=== PATIENT | male | born 1950 | race Caucasian/White ===

== ENCOUNTER 2016-07-25 13:12 | Emergency (ER) | payer OTHER ==
[2016-07-25 13:23] VITALS: TEMP 98.1
--- NOTE | 2016-07-25 13:42 | EDPHY ---
H & P Stated Complaint: exertional sob last 4 days HPI/ROS: CHIEF COMPLAINT: Chest heaviness HISTORY OF PRESENT ILLNESS: This patient is a 66 year old male with history of hypertension arriving by private vehicle complaining of chest heaviness onset 3-4 days ago. He reports he took 81mg PO Aspirin this morning, and acetaminophen (Panadol) last night. He describes heaviness and fullness in his chest, and an "unwillingness to breathe", and that he generally feels "unusually unwell". There is no radiation of pain, no nausea, no sweating. He states this sensation waxes and wanes, but is present most of the time. He has had an intermittent bloating feeling as well , and felt very full despite having only yogurt and fruit for breakfast. He also reports associated backache in the lumbar region bilaterally. He states he has never had a feeling similar to this before. He states he is not sure if some of his symptoms may be psychosomatic, as his mother in December , and this has been weighing on him heavily. He endorses slight cough. He denies vomiting, nausea, diarrhea, constipation, pain in calves, edema, incontinence. He states his is on his way back from [place] to care for him. REVIEW OF SYSTEMS: A ten point review of systems was performed and is negative with the exception of the items mentioned in the HPI. - Personal History Current Tetanus/Diphtheria Vaccine: Yes - Medical/Surgical History PMH: 1. Hypertension (Candesartan) 2. Kidney stones Hx Asthma: Yes Hx Chronic Respiratory Disease: No Hx Diabetes: No Hx Cardiac Disease: No Hx Renal Disease: No Hx Cirrhosis: No Hx Alcoholism: No Hx HIV/AIDS: No Hx Splenectomy or Spleen Trauma: No Other PMH: HTN, KIDNEY STONES - Social History Smoking Status: Never smoked Additional Social History: Nonsmoker. Rare alcohol use. . 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 - Physical Exam Exam: General Appearance: Alert. Vital signs reviewed. BP 133/81. Eyes: Pupils equal and round, no conjunctival injection, no discharge. Anicteric. ENT, Mouth: Mucous membranes are moist, no oropharyngeal erythema or edema. Neck: No lymphadenopathy, supple. No JVD. Respiratory: Lungs are clear to auscultation; no wheezes, rales, or rhonchi. Cardiovascular: Regular rate and rhythm; no murmur, rub, or gallop. Gastrointestinal: Abdomen is soft and nontender, no masses or organomegaly, bowel sounds normal. Skin: Warm and dry, no rashes on exposed skin, normal color. Back: Nontender to palpation over the thoracolumbar spine. No CVAT. Extremities: No lower extremity edema, no calf tenderness or swelling. Neurological: Alert and oriented. Moving all four extremities easily and equally. Psychiatric: Normal affect. Constitutional: Initial Vital Signs Temperature (C) 36.7 C 07/25/16 13:19 Heart Rate 73 07/25/16 13:19 Respiratory Rate 17 07/25/16 13:19 Blood Pressure 133/81 H 07/25/16 13:19 O2 Sat (%) 97 07/25/16 13:19 O2 Delivery Mode Room Air Allergies/Adverse Reactions: tetracycline [Tetracycline] Allergy (Verified 07/25/16 13:19) Home Medications: Medication Instructions Recorded ALPRAZolam [Xanax 0.25 MG (*)] 0.25 mg PO Q6 PRN #5 tab 07/25/16 Albuterol [Proventil Inhaler HFA 1 - 2 puffs IH Q4H PRN 07/25/16 (*)] Aspirin [Aspirin 81mg (*)] 81 mg PO DAILY 07/25/16 Candesartan Cilexetil [Atacand] 16 mg PO DAILY 07/25/16 Loratadine 10 mg PO DAILY PRN 07/25/16 Medical Decision Making - Diagnostics Imaging Results: I reviewed the two view chest xray in PACS. My interpretation: [facility]. ED Course/Re-evaluation: This patient is a 66 year old male presenting with a four day history of chest heaviness and difficulty breathing. Plan to order EKG, chest x-ray, and labs including CBC, CHEM, d-dimer, and troponin. Plan to administer 325mg PO Aspirin. EKG shows sinus rhythm, rate 76. Chest x-ray shows no acute processes, evidence of chronic bronchitis. . Reassessed patient. Discussed results of testing. Plan to admit for chest pain to monitor for acute processes. 17:00 Dr. Callaway discussed admission with the patient. Disposition was arranged between the two of them and he will instead be discharged home with a prescription for Xanax and instructions to follow up on Tuesday with a world renowned chef and restaurant owner to continue management of his symptoms. Differential Diagnosis: Chest pain including but not limited to myocardial ischemia, pulmonary embolus, chest wall pain, pleural inflammation and pulmonary infectious causes. Anxiety/ stress also considered as contributing to his presentation. - Data Points Laboratory Results: Laboratory Results 07/25/16 14:00 07/25/16 14:00 Medications Given: Discontinued Medications Aspirin (Aspirin) 324 mg PO EDNOW ONE Stop: 07/25/16 14:30 Last Admin: 07/25/16 14:43 Dose: 324 mg Departure - Departure Disposition: Home, Routine, Self-Care Clinical Impression: Chest pain Qualifiers: Chest pain type: other chest pain Qualified Code(s): R07.89 - Other chest pain ; R07.8 - Other chest pain Condition: Good Instructions: Chest Pain (ED) Additional Instructions: Return if you have persistent chest pain, shortness of breath, new or concerning symptoms. Follow up with Dr. Gaspar, cardiology, on Tuesday as planned. Referrals: Isra Pope MD [Primary Care Provider] - As per Instructions Gualberto Gaspar MD [Medical Doctor] - As per Instructions Prescriptions: ALPRAZolam [Xanax 0.25 MG (*)] 0.25 mg PO Q6 PRN #5 tab PRN Reason: Anxiety Report Scribed for: May Richardson Report Scribed by: Iona Higgins Date of Report: 07/25/16 Time of Report: 15:59 Physician Review and Approval Statement: 07/25/16 13:42 Portions of this note were transcribed by the certified medical dosimetrist. I, Dr. May Richardson, personally performed the history, physical exam, and medical decision- making; and confirmed the accuracy of the information in the transcribed note.
--- NOTE | 2016-07-25 14:11 | CPEKG ---
Heart Rate: 67 RR Interval: 896 P-R Interval: 180 QRSD Interval: 86 QT Interval: 404 QTC Interval: 427 P Marvell: 15 QRS Marvell: -23 T Wave Marvell: 37 EKG Severity - ABNORMAL ECG - EKG Impression: SINUS RHYTHM EKG Impression: LEFT VENTRICULAR HYPERTROPHY Electronically Signed By: May Richardson 25-Jul-2016 22:11:20
[2016-07-25] MEDS ORDERED: ASPIRIN 81 MG CHEWABLE TAB PO ONE (14:29)
[2016-07-25 14:33] LABS: % IMMATURE GRANULYOCYTES 0.6 % (0.0-1.1); ABSOLUTE IMMATURE GRANULOCYTES 0.05 10^3/uL (0.00-0.10); ADD DIFF? NO; ADD MORPH? NO; ADD SCAN? NO; ATYPICAL LYMPHOCYTE FLAG 0 (0-99); FRAGMENT RBC FLAG 0 (0-99); HEMOGLOBIN 15.1 g/dL (13.7-17.5); LEFT SHIFT FLG 0 (0-99); LIPEMIA HEMOLYSIS FLAG 90 (0-99); MEAN CELL HEMOGLOBIN 29.5 pg (27.9-34.1); MEAN CELL HEMOGLOBIN CONCENTR. 34.3 g/dL (32.4-36.7); MEAN CELL VOLUME 86.1 fL (81.5-99.8); MEAN PLATELET VOLUME 9.3 fL (8.7-11.7); PLATELET CLUMPS FLAG 0 (0-99); PLATELET COUNT 246 10^3/uL (150-400); RED BLOOD CELL COUNT 5.11 10^6/uL (4.40-6.38); RED CELL DISTRIBUTION WIDTH 12.9 % (11.5-15.2)
[2016-07-25 14:44] LABS: ANION GAP 12 mEq/L (8-16); CALCIUM 9.3 mg/dL (8.5-10.4); CARBON DIOXIDE 23 mEq/l (22-31); CHLORIDE 103 mEq/L (97-110); CREATININE 0.7 mg/dL (0.7-1.3); GLOMERULAR FILTRATION RATE > 60; GLUCOSE 88 mg/dL (70-100); POTASSIUM 4.2 mEq/L (3.5-5.2); SODIUM 138 mEq/L (134-144)
[2016-07-25 14:55] LABS: TROPONIN I < 0.012 ng/mL (0-0.034)
[2016-07-25 15:31] VITALS: RESP 16; O2SAT 95
--- NOTE | 2016-07-25 16:42 | PDGENHP ---
History and Physical - Chief Complaint chest tightness - History of Present Illness 66 y/o male nonsmoker with history htn without family h/o heart disease presents with chest tightness. 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 He denies chest pain. [place] like he couldn't take a breath or breath. Denies wheezing. Currently asymptomatic. His mother at the age of 100 in December and he has still been dealing with a large amount of grief and anxiety. History Information - Allergies/Home Medication List Allergies/Adverse Reactions: tetracycline [Tetracycline] Allergy (Verified 07/25/16 13:19) Home Medications: Loratadine 07/25/16 [Last Taken Unknown] Losartan Potassium 07/25/16 [Last Taken Unknown] Ventolin Hfa Inhaler 07/25/16 [Last Taken Unknown] I have personally reviewed and updated: family history, medical history, social history, surgical history - Past Medical History hypertension Additional medical history: mily, asthma - Surgical History Additional surgical history: right femur orif - Social History Smoking Status: Never smoked Alcohol Use: Occasionally Drug Use: None Review of Systems ROS: 10pt was reviewed & negative except for what was stated in HPI & below Physical Exam Temp Pulse Resp BP Pulse Ox 36.7 C 71 16 137/91 H 95 07/25/16 13:19 07/25/16 15:31 07/25/16 15:31 07/25/16 15:31 07/25/16 15:31 Constitutional: no apparent distress, appears nourished, not in pain Eyes: PERRL, anicteric sclera, EOMI Ears, Nose, Mouth, Throat: moist mucous membranes, hearing normal, ears appear normal, no oral mucosal ulcers Cardiovascular: regular rate and rhythym, no murmur, rub, or gallop, No edema Respiratory: no respiratory distress, no rales or rhonchi, clear to auscultation Gastrointestinal: normoactive bowel sounds, soft, non-tender abdomen, no palpable masses, No guarding, No rebound Genitourinary: no bladder fullness, no bladder tenderness Skin: warm, normal color, no rashes or abrasions, no fluctuance, no induration, No mottled Musculoskeletal: full muscle strength, no muscle tenderness, normal joint ROM, no joint effusions Neurologic: AAOx3, CN II-XII Intact, No facial droop Psychiatric: interacting appropriately, not encephalopathic, thought process linear, anxious Lymph, Heme, Immunologic: no cervical LAD, no supraclavicular LAD Lab Data & Imaging Review 07/25/16 14:00 07/25/16 14:00 WBC 7.95 10^3/uL (3.80-9.50) 07/25/16 14:00 RBC 5.11 10^6/uL (4.40-6.38) 07/25/16 14:00 Hgb 15.1 g/dL (13.7-17.5) 07/25/16 14:00 Hct 44.0 % (40.0-51.0) 07/25/16 14:00 MCV 86.1 fL (81.5-99.8) 07/25/16 14:00 MCH 29.5 pg (27.9-34.1) 07/25/16 14:00 MCHC 34.3 g/dL (32.4-36.7) 07/25/16 14:00 RDW 12.9 % (11.5-15.2) 07/25/16 14:00 Plt Count 246 10^3/uL (150-400) 07/25/16 14:00 MPV 9.3 fL (8.7-11.7) 07/25/16 14:00 Neut % (Auto) 53.6 % (39.3-74.2) 07/25/16 14:00 Lymph % (Auto) 32.1 % (15.0-45.0) 07/25/16 14:00 [place] % (Auto) 7.5 % (4.5-13.0) 07/25/16 14:00 Eos % (Auto) 4.9 % (0.6-7.6) 07/25/16 14:00 Baso % (Auto) 1.3 % (0.3-1.7) 07/25/16 14:00 Nucleat RBC Rel Count 0.0 % (0.0-0.2) 07/25/16 14:00 Absolute Neuts (auto) 4.26 10^3/uL (1.70-6.50) 07/25/16 14:00 Absolute Lymphs (auto) 2.55 10^3/uL (1.00-3.00) 07/25/16 14:00 Absolute Monos (auto) 0.60 10^3/uL (0.30-0.80) 07/25/16 14:00 Absolute Eos (auto) 0.39 10^3/uL (0.03-0.40) 07/25/16 14:00 Absolute Basos (auto) 0.10 10^3/uL (0.02-0.10) 07/25/16 14:00 Absolute Nucleated RBC 0.00 10^3/uL (0-0.01) 07/25/16 14:00 Immature Gran % 0.6 % (0.0-1.1) 07/25/16 14:00 Immature Gran # 0.05 10^3/uL (0.00-0.10) 07/25/16 14:00 D-Dimer < 0.27 ug/mLFEU (0.00-0.50) 07/25/16 14:00 Sodium 138 mEq/L (134-144) 07/25/16 14:00 Potassium 4.2 mEq/L (3.5-5.2) 07/25/16 14:00 Chloride 103 mEq/L (97-110) 07/25/16 14:00 Carbon Dioxide 23 mEq/l (22-31) 07/25/16 14:00 Anion Gap 12 mEq/L (8-16) 07/25/16 14:00 BUN 18 mg/dL (7-23) 07/25/16 14:00 Creatinine 0.7 mg/dL (0.7-1.3) 07/25/16 14:00 Estimated GFR > 60 07/25/16 14:00 Glucose 88 mg/dL (70-100) 07/25/16 14:00 Calcium 9.3 mg/dL (8.5-10.4) 07/25/16 14:00 Troponin I < 0.012 ng/mL (0-0.034) 07/25/16 14:00 Visualized and Interpreted Chest x-ray results: Yes Chest X-Ray results: other (chronic bronchitis) Visualized and Interpreted EKG results: Yes EKG Interpretation: Positive for: normal sinsus rhythm (67 bpm). Negative for: ST elevation, ST depression Assessment & Plan Assessment: 66 y/o male with h/o asthma presents with: # episode of breathlessness which I suspect is due to a panic attack. Plan I offered observation and inpatient stress test, but feel that it is reasonable for him to be discharged home with outpatient followup. I discussed the case with Dr. Gaspar from [facility] [place] cardiology who is happy to arrange for an outpatient stress test on Tuesday just to be sure his symptoms are not cardial in etiology. The patient is comfortable with this plan and knows to seek medical attention if his symptoms return. Will also DC with a trial of Xanax to be used prn in the future. #Asthma (controlled) with evidence of chronic bronchitis on cxr Plan Recommend outpatient PFTs
[2016-07-25 17:22] VITALS: BP 153/103; PULSE 68
== END 2016-07-25 17:21 | disposition home or self-care (01) ==
LOC: UNDOADMOB 16:27
DX: R07.89 Other chest pain (principal); I10 Essential (primary) hypertension; Z79.82 Long term (current) use of aspirin

== ENCOUNTER → 2017-09-01 | Outpatient (CLI) | payer OTHER | LOC: BMCIMAGING 11:29 | PROVIDERS: ATTEND Podiatrist Foot & Ankle Surgery | DX: S92.352D Displaced fracture of fifth metatarsal bone, left foot, subsequent encounter for fracture with routine healing (principal) ==